=== PATIENT | female | born 1955 | race Caucasian/White ===

== ENCOUNTER → 2018-10-30 | Outpatient (CLI) | payer BC ==
[~2018-10-30] VITALS: Ht 167.6 cm; Wt 85.7 kg
[~2018-10-30] MED LIST: CRESTOR10 MG PO; HYDROCODON-ACE1 EAC5 PO; LASIX 40 MG TAB40 M2 PO; LEXAPRO20 MG PO; NORCO 10-325 T1 EACH PO; NORVASC10 MG PO; SYMBICORT160 MCG/4. INH; ZYRTEC10 M5 PO
--- NOTE | ~2018-10-30 | HPC ---
[facility] [place] [address] PAIN MANAGEMENT CONSULTATION Name: LEONEL THOMSON Room #: REG [facility].#: [id number] Admission: 10/30/18 Attend Phys: Ivan Faria MD Discharge: Date of : 53 Report #: [id number] THIS REPORT FOR: //name// CC: Jesse Faria DATE OF SERVICE: 10/30/2018 Followup visit for chronic intractable low back pain with radiculopathy, left lower extremity. The patient returns to pain clinic today for renewal of pain medication. She has lumbar radiculopathy involving L5-S1 distribution. She walks with a slightly antalgic gait. She has been doing well with her oral medication. She takes Celebrex once daily as needed and has been using hydrocodone under terms of written opioid agreement. She has been on opioid medications since 2011 using effectively to remain active and continue to work. 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 The medication allows her to work. She has no significant side effects and carefully safeguards her medication per terms of our written agreement. This is her first visit at [facility]. We had to renew her opioid agreement with us today for our records. PHYSICAL EXAMINATION: She is pleasant female, alert and oriented. Blood pressure is 137/70, heart rate 65, respirations 16. She is 5 feet 6 inches, 189 pounds with a BMI of 30.5. She independently moves from sitting to standing position and there is a slight antalgic feature to her gait. She has positive straight leg raising discomfort on the left, radiating down the L5-S1 distribution of the left leg as far as the calf. Sensation is intact. No focal weakness is noted. Deep tendon reflexes are hyperreflexic, 3+ at knees and ankles. Sensation intact. It should be noted she does have history of some neck pain, but does not have an MRI. She is not experiencing any neuropathic features from her neck pain, but the hyperreflexia was noted to the patient. IMPRESSION: 1. Chronic low back pain with radiculopathy on the left and L5-S1 distribution. 2. Management of high risk medications under terms of written opioid agreement. 3. Osteoarthritis, status post hip replacement, bilateral. PLAN: I renewed her medications with important information regarding [address] [place] [address] PAIN MANAGEMENT CONSULTATION Name: LEONEL THOMSON Francine Room #: REG MICHAEL Cruz#: [id number] Admission: 10/30/18 Attend Phys: Ivan Faria MD Discharge: Date of : 53 Report #: [id number] safeguarding, repeated once again before discharge and I plan to see her back in the pain clinic at 3 month interval. No changes in medication. She will remain on hydrocodone 10/325 one tablet 4 times daily as directed. By: [id number] Ivan Faria MD /le
[2018-10-30 09:21] VITALS: BP 137/70
--- NOTE | 2018-10-30 09:34 | NUR ---
Pain Clinic Assessment: 1. History of Osteoarthritis: History of Rheumatoid Arthritis: 2. Height: 5 ft. 6 in. 167.6 cm. Weight: 189.0 lb. oz. 85.730 kg. Patient's BMI: 30.5 3. Vital Signs: BP: 137/70 Pulse: 65 Resp: 16 Temp: 02 Sat: 96 ECG Mon: 4. Pain Intensity: 6 5. Fall Risk: Dizziness: N Needs help standing or walking: N Fallen in the last 3 months: N Fall risk comments: 6. Patient on Blood Thinner: None 7. History of Hypertension: Y 8. Opioid Therapy greater than 6 weeks: Y Opiate Contract Signed: 10/30/18 9. Risk Assessment Tool Provided: 10. Functional Assessment Tool: 34 11. Recreational Drug Use: Never Drug Type: Tobacco Use: Never Smoker Tobacco Type: Amount or Packs/day: How Many Years: Alcohol Use: No Frequency: Quant:
== END ==
LOC: PAIN 08:17
DX: M54.16 Radiculopathy, lumbar region (principal); Z96.643 Presence of artificial hip joint, bilateral; Z79.899 Other long term (current) drug therapy; Z79.891 Long term (current) use of opiate analgesic

== ENCOUNTER → 2019-01-29 | Outpatient (CLI) | payer BC ==
[~2019-01-29] VITALS: Ht 167.6 cm; Wt 88.5 kg
[2019-01-29 09:07] VITALS: BP 132/72
--- NOTE | 2019-01-29 09:13 | NUR ---
Pain Clinic Assessment: 1. History of Osteoarthritis: History of Rheumatoid Arthritis: 2. Height: 5 ft. 6 in. 167.6 cm. Weight: 195.2 lb. oz. 88.542 kg. Patient's BMI: 31.5 3. Vital Signs: BP: 132/72 Pulse: 66 Resp: 16 Temp: 02 Sat: 100 ECG Mon: 4. Pain Intensity: 6 5. Fall Risk: Dizziness: N Needs help standing or walking: N Fallen in the last 3 months: N Fall risk comments: 6. Patient on Blood Thinner: None 7. History of Hypertension: Y 8. Opioid Therapy greater than 6 weeks: Y Opiate Contract Signed: 10/30/18 9. Risk Assessment Tool Provided: LOW 10. Functional Assessment Tool: 34 11. Recreational Drug Use: Never Drug Type: Tobacco Use: Never Smoker Tobacco Type: Amount or Packs/day: How Many Years: Alcohol Use: No Frequency: Quant:
--- NOTE | 2019-02-02 07:18 | HPC ---
[facility] [address] [place] [address] PAIN MANAGEMENT CONSULTATION Name: LEONEL THOMSON Room #: REG MICHAEL Cruz#: [id number] Admission: 01/29/19 ������������������ Attend Phys: Betzaida Ibanez Discharge: ������������������ Date of : 53 Report #: [id number] THIS REPORT FOR: //name// CC: Betzaida Ibanez [facility] DATE OF SERVICE: 01/29/2019 CHIEF COMPLAINT: Chronic intractable low back pain with radiculopathy. HISTORY OF PRESENT ILLNESS: This is a very pleasant 63-year-old female who returns to the pain clinic today for refill of her medications for her ongoing chronic low back pain and radiculopathy. She tells me that her hydrocodone is very helpful in controlling her pain. 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 Tax season was hard with lots of sitting since most of her pain is worse when she is sitting and lying down, but it is slowly getting better now that the bulk of her work is over. She tells me that her medications are helpful as well as repositioning. She does not have any problems with daytime sleepiness or constipation. She tells me she has an appointment with Dr. Adan in April to just discuss with him about her back and about spinal cord stimulator, which Dr. Faria had mentioned to her in the past. She tells me she is not looking to have surgery currently, she just would like a consult to see what the surgeon thinks. She would like a refill of her medications today. ALLERGIES: PENICILLIN. CURRENT MEDICATIONS: Hydrocodone 10/325 four times a day, Zyrtec 10 mg daily, Symbicort daily, Crestor 10 mg daily, Lexapro 40 mg daily, Lasix 40 mg daily, amlodipine 10 mg daily. PQRS: 1. She has a history of arthritic changes in her hips and lower back. She denies any rheumatoid arthritis. 2. Height is 5 feet 6 inches, weight is 195, BMI is 35. 3. Vital signs: Blood pressure 132/72, pulse of 66, respirations 16, oxygen sat is 100%. 4. Pain score is 6/10. 5. Fall risk. Denies dizziness. Does not need any help with walking or standing. She has not fallen in the last 3 months. She does not take any blood thinner medications, but does take antihypertensives. 6. Opioid therapy is greater than 6 weeks; therefore, an opioid signed contract is on the chart. Her risk assessment tool is low. Functional assessment is 34/70. 7. Recreational drug use, she denies. She is not a smoker [place] [address] PAIN MANAGEMENT CONSULTATION Name: LEONEL THOMSON Yogi Room #: REG [facility] Anthony#: [id number] Admission: 01/29/19 ������������������ Attend Phys: Betzaida Ibanez Discharge: ������������������ Date of : 53 Report #: [id number] We did check the prescription monitoring system. The patient is filling appropriately for her medications filling in a timely fashion. We do not have a drug screen on this chart, but we will do one randomly in the near future. PHYSICAL EXAMINATION: GENERAL: This is a very pleasant and alert 63-year-old female who appears her stated age, placing her pain score today at 6/10. HEENT: Normocephalic, atraumatic. Extraocular eye muscles are intact. Mucous membranes are moist. MUSCULOSKELETAL: She moves independently from sitting to standing. She has pain that radiates down the L5-S1 distribution on the left leg from her lower back to her knee. She does walk with a slightly antalgic gait. Lower extremity muscle strength is judged to be 5/5 for all major muscle groups. IMPRESSION: 1. Chronic low back pain with radiculopathy on the left in the L5-S1 distribution. 2. Management of high risk medications under terms of written opioid agreement. 3. Osteoarthritis, status post bilateral hip replacement. We reviewed the fact that opiate medications are being used to provide analgesia adequate to support activities of daily living, not attempting to achieve a specific pain score on the 0-10 Visual Analog Scale. The current opiate medications are providing sufficient analgesia to allow the patient to participate in activities of daily living. The patient is not exhibiting any aberrant behavior suggestive of drug diversion. The patient is not having any adverse reactions to medications. The patient is not suffering from daytime somnolence or mental acuity changes. The patient is managing opiate-induced constipation with appropriate iacz-axm-lctdqnh agents and dietary considerations. The patient was counseled on concern for caution with operating a motor vehicle while using opiate medications. A physical exam was performed and the patient's functional status was evaluated. All patients with back pain were advised against the bed rest greater than 4 days and were advised to return to normal activities. Pain score assessment was noted and the treatment plan was reviewed with the patient. All current medications, both prescribed and OTC were reviewed and reconciled on the electronic medical record. Tobacco screening was accomplished and smoking cessation was advised when indicated. BMI was noted and diet/exercise modification was recommended for all patients following outside normal parameters. I reviewed with the patient today their responsibilities to safeguard prescription medications, reviewed their responsibility to utilize medications only as prescribed by the physician. They are to seek and receive pain medications only from 1 physician group ([facility]). They are to use [address] [address] PAIN MANAGEMENT CONSULTATION Name: LEONEL THOMSON Room #: REG [facility]#: [id number] Admission: 01/29/19 ������������������ Attend Phys: Betzaida Ibanez Discharge: ������������������ Date of : 53 Report #: [id number] pharmacy and keep the clinic informed if they change pharmacies. Their responsibilities include making followup visits in a timely fashion and to avoid abrupt discontinuation of medication usage. Their responsibilities further include bringing their medications (bottles from the pharmacy with residual pills) to the visit for possible confirmation of pill counts and the patient understands it is their responsibility to submit to random drug screens to ensure both that the medications prescribed are present, and that no other controlled substances are present. All prescriptions provided today were generated electronically. PLAN: 1. We discussed treatment options with the patient today. The patient is doing quite well on her current medication regimen. According to the CDC guidelines, she falls into [address] below their guidelines; therefore, we will give her 3 months of medication of hydrocodone 10/325, quantity #120 to release today 4-week and 8-week. 2. The patient will see Dr. Felipe Adan, neurosurgeon to have a consultation with him regarding her lower back pain and also discuss spinal cord stimulation. I believe this is good just to see what her options are at this time. 3. Dr. Faria did come and see the patient and collaborated care today. The patient will return in followup in 3 months' time. ��������������������������������������������� <ELECTRONICALLY SIGNED> ���������������������������������������� By: Betzaida Ibanez ��������������������������������������������� 02/02/19 07 0941 1943 Betzaida wagner
== END ==
LOC: PAIN 06:44
DX: M47.27 Other spondylosis with radiculopathy, lumbosacral region (principal); M19.90 Unspecified osteoarthritis, unspecified site; Z88.0 Allergy status to penicillin; Z79.899 Other long term (current) drug therapy; Z96.643 Presence of artificial hip joint, bilateral

== ENCOUNTER → 2019-04-23 | Outpatient (CLI) | payer BC ==
[~2019-04-23] VITALS: Ht 167.6 cm; Wt 88.1 kg
[~2019-04-23] MED LIST changes: +FLEXERIL PO; +LIORESAL 10 MG10 MG PO
[2019-04-23 09:56] VITALS: BP 136/70
--- NOTE | 2019-04-23 10:06 | NUR ---
Pain Clinic Assessment: 1. History of Osteoarthritis: History of Rheumatoid Arthritis: 2. Height: 5 ft. 6 in. 167.6 cm. Weight: 194.2 lb. oz. 88.089 kg. Patient's BMI: 31.4 3. Vital Signs: BP: 136/70 Pulse: 66 Resp: 16 Temp: 02 Sat: 96 ECG Mon: 4. Pain Intensity: 8 5. Fall Risk: Dizziness: N Needs help standing or walking: Y Fallen in the last 3 months: Y Fall risk comments: 6. Patient on Blood Thinner: None 7. History of Hypertension: Y 8. Opioid Therapy greater than 6 weeks: Y Opiate Contract Signed: 10/30/18 9. Risk Assessment Tool Provided: LOW 10. Functional Assessment Tool: 34 11. Recreational Drug Use: Never Drug Type: Tobacco Use: Never Smoker Tobacco Type: Amount or Packs/day: How Many Years: Alcohol Use: No Frequency: Quant:
--- NOTE | 2019-04-27 10:25 | HPC ---
[facility] [place] [place] [address] PAIN MANAGEMENT CONSULTATION Name: LEONEL THOMSON Room #: REG [facility] Cruz#: [id number] Admission: 04/23/19 ������������������ Attend Phys: Betzaida Ibanez Discharge: ������������������ Date of : 53 Report #: [id number] THIS REPORT FOR: //name// CC: Betzaida Ibanez [facility] DATE OF SERVICE: 04/23/2019 CHIEF COMPLAINT: Chronic intractable low back pain with radiculopathy and fractured patella. HISTORY OF PRESENT ILLNESS: This is a very pleasant 63-year-old female who returns to the pain clinic today for refill of her medications. She reports that she fell going up her steps in her home about 2 weeks ago and landed on her right knee and fractured her patella. She has seen an orthopedic doctor, so she is in an immobilizer brace. They are attempting to keep it immobilized for at least 6 weeks to see if it will heal. If this is unsuccessful, then she may possibly need to have surgery. Due to this recent fracture, the patient has been taking 1 extra pain pill of her hydrocodone a day to get through the day when she is working. She tells me that she has also been having some restless leg, feeling legs have been jerky when she is at work as well as at sleep. She reports a pain score of an 8/10 today. This pain is worse when she is sitting, but better when she is repositioned or changes position or uses her medication. She denies any problems with daytime sleepiness or constipation. ALLERGIES: PENICILLIN. CURRENT LIST OF MEDICATIONS: Flexeril 5-10 mg p.r.n., hydrocodone 10/325 up to 4 times a day, Zyrtec, Symbicort, Crestor, Lexapro, Lasix and Norvasc. PQRS: 1. The patient has a history of arthritic changes in her hips and her lumbar spine. She denies any rheumatoid arthritis. 2. Height is 5 feet 6 inches, weight is 194, BMI is 31. 3. VITAL SIGNS: Blood pressure 136/70, pulse is 66, respirations 16, oxygen sat is 96. 4. Pain score is 8/10. 5. Denies dizziness. Does use a cane for walking, has fallen in the last 3 months. 6. The patient is not on any blood thinners, but does take medicine for hypertension. 7. Opioid therapy is greater than 6 weeks; therefore, an opioid signed contract is on the chart. Risk assessment tool is low. Functional assessment is 34/70. 8. Recreational drug use, she denies. She is not a smoker and does not drink alcohol. [address] [address] PAIN MANAGEMENT CONSULTATION Name: BERTOLEONEL Room #: REG MICHAEL Cruz#: [id number] Admission: 04/23/19 ������������������ Attend Phys: Betzaida Ibanez Discharge: ������������������ Date of : 53 Report #: [id number] According to the prescription monitoring system, the patient is due to fill her medications next week. We will check a random drug screen on her in the near future. She tells me she does safeguard her medications. PHYSICAL EXAMINATION: GENERAL: This is a very pleasant, alert and orientated, 63-year-old female who appears her stated age, placing her current pain score today at 8/10. HEENT: Normocephalic, atraumatic. Extraocular eye muscles are intact. Mucous membranes are moist. MUSCULOSKELETAL: She moves from sitting to standing independently. She does have an immobilizer on her right leg. Her right knee is slightly swollen compared to the left. She does walk with an antalgic gait. Complains of pain across the lumbar spine that radiates down the L5-S1 dermatomal distribution. Her lower extremity strength judged to be 5/5 in all major muscle groups. IMPRESSION: 1. Chronic low back pain with radiculopathy following the L5-S1 dermatomal distribution. 2. Management of high risk medications under terms of written opioid agreement. 3. Osteoarthritis, status post bilateral hip replacement. 4. Recent right patella fracture. We reviewed the fact that opiate medications are being used to provide analgesia adequate to support activities of daily living, not attempting to achieve a specific pain score on the 0-10 Visual Analog Scale. The current opiate medications are providing sufficient analgesia to allow the patient to participate in activities of daily living. The patient is not exhibiting any aberrant behavior suggestive of drug diversion. The patient is not having any adverse reactions to medications. The patient is not suffering from daytime somnolence or mental acuity changes. The patient is managing opiate-induced constipation with appropriate phew-gch-tououpv agents and dietary considerations. The patient was counseled on concern for caution with operating a motor vehicle while using opiate medications. A physical exam was performed and the patient's functional status was evaluated. All patients with back pain were advised against the bed rest greater than 4 days and were advised to return to normal activities. Pain score assessment was noted and the treatment plan was reviewed with the patient. All current medications, both prescribed and OTC were reviewed and reconciled on the electronic medical record. Tobacco screening was accomplished and smoking cessation was advised when indicated. BMI was noted and diet/exercise modification was recommended for all patients following outside normal parameters. I reviewed with the patient today their responsibilities to safeguard prescription medications, reviewed their responsibility to utilize medications [address] [place] [address] PAIN MANAGEMENT CONSULTATION Name: LEONEL THOMSON [facility] [id number] Admission: 04/23/19 ������������������ Attend Phys: Betzaida MICHAEL Ibanez Discharge: ������������������ Date of : 53 Report #: [id number] only as prescribed by the physician. They are to seek and receive pain medications only from [facility] physician group ( [facility]). They are to use 1 pharmacy and keep the clinic informed if they change pharmacies. Their responsibilities include making followup visits in a timely fashion and to avoid abrupt discontinuation of medication usage. Their responsibilities further include bringing their medications (bottles from the pharmacy with residual pills) to the visit for possible confirmation of pill counts and the patient understands it is their responsibility to submit to random drug screens to ensure both that the medications prescribed are present, and that no other controlled substances are present. All prescriptions provided today were generated electronically. PLAN: 1. We discussed treatment options with the patient today. The patient is experiencing acute pain on her chronic pain; therefore, requiring a few extra pain pills to get through this fracture. We have allowed the patient to take 1 extra pain pill for the next couple of weeks. Hopefully, by that time, she will have some decrease in pain when the fracture is healing. Scripts given today for hydrocodone 10/325, #135 for the first month, then 120 for 4-week release and 120 for 8-week release. The patient verbalizes understanding that she is to decrease back to her normal medication level by the second month. 2. We did caution the patient about increased constipation issues that she may experience from her increase in Narcotics. 3. The patient did talk about some restless leg issues that she is experiencing since she has had her fracture. She had tried diazepam in the past when she had had her hip replaced, wondering if there is a medication that may be beneficial. After discussion with the patient and Dr. Ivan Faria, it was decided to have a trial of baclofen 10 mg, a half to one tablet 3 times a day, #30 with 1 additional refill was given. The patient is to call the office if this is not helpful, then we could try a trial of tizanidine at 2 mg, though it does have some sedating effect, which is what we are trying to prevent with the use of baclofen. 4. The patient will call us if she does have surgery on her right patella and if she is given any narcotics from the surgeon due to her ongoing contract with us. 5. Dr. Faria did see the patient and collaborated care as well today. ��������������������������������������������� <ELECTRONICALLY SIGNED> ���������������������������������������� By: Betzaida Ibanez ��������������������������������������������� 04/27/19 1025 [id number] Betzaida Ibanez /le
== END ==
LOC: PAIN 06:42
DX: M54.16 Radiculopathy, lumbar region (principal); S82.001D Unspecified fracture of right patella, subsequent encounter for closed fracture with routine healing; M16.0 Bilateral primary osteoarthritis of hip; Z96.643 Presence of artificial hip joint, bilateral; Z79.891 Long term (current) use of opiate analgesic; Z79.899 Other long term (current) drug therapy; Z88.0 Allergy status to penicillin; X58.XXXD Exposure to other specified factors, subsequent encounter

== ENCOUNTER → 2019-05-04 | Outpatient (CLI) | payer BC ==
[~2019-05-04] VITALS: Ht 165.1 cm; Wt 86.6 kg
[~2019-05-04] MED LIST changes: +VENTOLIN HFA 1818 GM INH; +ZANAFLEX4 MG PO
[2019-05-04 08:40] VITALS: BP 147/77
--- NOTE | 2019-05-04 08:42 | NUR ---
Pain Clinic Assessment: 1. History of Osteoarthritis: Not Applicable History of Rheumatoid Arthritis: Not Applicable 2. Height: 5 ft. 5 in. 165.1 cm. Weight: 191.0 lb. oz. 86.637 kg. Patient's BMI: 31.8 3. Vital Signs: BP: 147/77 Pulse: 74 Resp: 16 Temp: 02 Sat: 94 ECG Mon: 4. Pain Intensity: 5-6 5. Fall Risk: Dizziness: N Needs help standing or walking: N Fallen in the last 3 months: Y Fall risk comments: 6. Patient on Blood Thinner: None 7. History of Hypertension: Y 8. Opioid Therapy greater than 6 weeks: Y Opiate Contract Signed: 10/30/18 9. Risk Assessment Tool Provided: LOW 10. Functional Assessment Tool: 11. Recreational Drug Use: Never Drug Type: Tobacco Use: Never Smoker Tobacco Type: Amount or Packs/day: How Many Years: Alcohol Use: No Frequency: Quant:
--- NOTE | 2019-05-05 10:10 | HPC ---
[facility] [place] [address] PAIN MANAGEMENT CONSULTATION Name: LEONEL THOMSON Room #: REG MICHAEL Cruz#: [id number] Admission: 05/04/19 Attend Phys: Betzaida Ibanez Discharge: Date of : 53 Report #: [id number] THIS REPORT FOR: //name// CC: Betzaida Ibanez Jesse Joaquin DATE OF SERVICE: 05/04/2019 CHIEF COMPLAINT: Chronic intractable low back pain with radiculopathy, fracture patella. HISTORY OF PRESENT ILLNESS: This is a very pleasant 63-year-old female who returns to the pain clinic today for her low back pain and lumbar radiculopathy. She was here approximately 2 weeks ago and had fractured her patella on her right knee and been having increasing spasms and restless leg feeling since this has occurred. We had given her baclofen at that time. She is finding that that is not as helpful as would like. She did have Flexeril that she had taken in the past, but it made her too hungover and sleepy feeling in the morning when she was needing to go to work. She is here today to discuss different options. The patient does tell me that the pain medicine that we gave her the hydrocodone 10/325 additional pills is very helpful in controlling her pain. She does rate her pain score is a 5-6 today, again mostly in the low back and bilateral legs and right knee. The patient tells me she did see the neurosurgeon Dr. Adan last week. He gave her several options. One was surgery. Another was a spinal cord stimulator or possibly having Dr. Ivan Faria do a facet injection. He recommended that she wait for all of these until her back is not so flared up due to her gait being altered with her knee brace on and using a cane. She does have literature about a spinal cord stimulator that she is reviewing. ALLERGIES: PENICILLIN. CURRENT LIST OF MEDICATIONS: Hydrocodone 10/325, Flexeril 10 mg p.r.n., Zyrtec, Symbicort, Crestor, Lexapro, Lasix and Norvasc. PQRS: 1. She has a history of arthritic changes in her hips and lumbar spine. She denies any rheumatoid arthritis. 2. Height is 5 feet 5 inches, weight is 191, BMI is 31. 3. VITAL SIGNS: Blood pressure 147/77, pulse is 74, respirations 16, oxygen sat is 94. 4. Pain score is 5-6. 5. Denies dizziness, does not need help walking or standing, has fallen in the last 3 months. 6. The patient is on no blood thinners, does [place] [address] PAIN MANAGEMENT CONSULTATION Name: LEONEL THOMSON Room #: REG MICHAEL Cruz#: [id number] Admission: 05/04/19 Attend Phys: Betzaida Ibanez Discharge: Date of : 53 Report #: [id number] 7. Opioid therapy is greater than 6 weeks; therefore, an opioid signed contract is on the chart. Her risk assessment tool is low. Functional assessment is 34/70. 8. Recreational drug use, she denies. She is not a smoker and does not drink alcohol. According to the prescription monitoring system, the patient is filling appropriately for her medications and is not due for those today. PHYSICAL EXAMINATION: GENERAL: Very pleasant, alert and orientated 63-year-old female who appears her stated age, placing her current pain score today at 5-6. HEENT: Normocephalic, atraumatic. Extraocular eye muscles are intact. Mucous membranes are moist. MUSCULOSKELETAL: She has immobilizer on her right leg. She does walk with an antalgic gait. Complains of pain in her lumbar spine that radiates down her L5-S1 dermatomal distribution greater on the left than the right. Lower extremity strength judged to be 5/5 with all major muscle groups. She does move from sitting to standing independently. She is using the cane today. IMPRESSION: 1. Chronic low back pain with radiculopathy following the L5-S1 dermatomal distribution. 2. Management of high risk medications under terms of written opioid agreement. 3. Osteoarthritis, status post bilateral hip replacement. 4. Right patellar fracture. 5. Scoliosis. We reviewed the fact that opiate medications are being used to provide analgesia adequate to support activities of daily living, not attempting to achieve a specific pain score on the 0-10 Visual Analog Scale. The current opiate medications are providing sufficient analgesia to allow the patient to participate in activities of daily living. The patient is not exhibiting any aberrant behavior suggestive of drug diversion. The patient is not having any adverse reactions to medications. The patient is not suffering from daytime somnolence or mental acuity changes. The patient is managing opiate-induced constipation with appropriate fdkd-olu-abxwpev agents and dietary considerations. The patient was counseled on concern for caution with operating a motor vehicle while using opiate medications. A physical exam was performed and the patient's functional status was evaluated. All patients with back pain were advised against the bed rest greater than 4 days and were advised to return to normal activities. Pain score assessment was noted and the treatment plan was reviewed with the patient. All current medications, both prescribed and OTC were reviewed and reconciled on the electronic medical record. Tobacco screening was accomplished and smoking [address] [address] PAIN MANAGEMENT CONSULTATION Name: LEONEL THOMSON Room #: REG [facility]#: [id number] Admission: 05/04/19 Attend Phys: Betzaida Ibanez Discharge: Date of : 53 Report #: [id number] cessation was advised when indicated. BMI was noted and diet/exercise modification was recommended for all patients following outside normal parameters. I reviewed with the patient today their responsibilities to safeguard prescription medications, reviewed their responsibility to utilize medications only as prescribed by the physician. They are to seek and receive pain medications only from 1 physician group ( [facility]). They are to use 1 pharmacy and keep the clinic informed if they change pharmacies. Their responsibilities include making followup visits in a timely fashion and to avoid abrupt discontinuation of medication usage. Their responsibilities further include bringing their medications (bottles from the pharmacy with residual pills) to the visit for possible confirmation of pill counts and the patient understands it is their responsibility to submit to random drug screens to ensure both that the medications prescribed are present, and that no other controlled substances are present. All prescriptions provided today were generated electronically. PLAN: 1. We discussed treatment options with the patient today the increase in her pain medications from 120 to 135 has been very beneficial helping her deal with the increased pain from her fractured patella. The patient will see the orthopedic doctor Saturday to determine if she does need surgery or if she will continue to heal wearing only her brace. 2. We had done a trial of baclofen that was not beneficial with helping her muscle spasms and restless leg. We will try tizanidine 4 mg. The patient to try 1/2 tablet at daytime and 1 full tablet at bedtime, quantity 60 given with 1 additional refill. 3. No scripts for narcotics were given today. 4. We did talk about spinal cord stimulators and possible facet injection. The patient will call in the future if these need to be scheduled. Patient seen in collaboration today with Dr. Ivan Faria. <ELECTRONICALLY SIGNED> By: Betzaida Ibanez 05/05/19 1010 [id number] [id number] Betzaida Ibanez /le
== END ==
LOC: PAIN 06:42
DX: M54.16 Radiculopathy, lumbar region (principal); S82.001A Unspecified fracture of right patella, initial encounter for closed fracture; M16.0 Bilateral primary osteoarthritis of hip; M41.86 Other forms of scoliosis, lumbar region; Z88.0 Allergy status to penicillin; Z79.899 Other long term (current) drug therapy; Z79.891 Long term (current) use of opiate analgesic; Z96.643 Presence of artificial hip joint, bilateral; X58.XXXA Exposure to other specified factors, initial encounter; Y93.89 Activity, other specified; Y92.89 Other specified places as the place of occurrence of the external cause; Y99.8 Other external cause status

== ENCOUNTER → 2019-07-09 | Outpatient (CLI) | payer BC ==
[~2019-07-09] VITALS: Ht 165.1 cm; Wt 87.1 kg
[2019-07-09 09:26] VITALS: BP 161/82
--- NOTE | 2019-07-09 09:32 | NUR ---
Pain Clinic Assessment: 1. History of Osteoarthritis: Not Applicable History of Rheumatoid Arthritis: Not Applicable 2. Height: 5 ft. 5 in. 165.1 cm. Weight: 192.0 lb. oz. 87.091 kg. Patient's BMI: 32.0 3. Vital Signs: BP: 161/82 Pulse: 68 Resp: 18 Temp: 02 Sat: 97 ECG Mon: 4. Pain Intensity: 7 5. Fall Risk: Dizziness: N Needs help standing or walking: N Fallen in the last 3 months: N Fall risk comments: 6. Patient on Blood Thinner: None 7. History of Hypertension: Y 8. Opioid Therapy greater than 6 weeks: Y Opiate Contract Signed: 10/30/18 9. Risk Assessment Tool Provided: LOW 10. Functional Assessment Tool: 11. Recreational Drug Use: Never Drug Type: Tobacco Use: Never Smoker Tobacco Type: Amount or Packs/day: How Many Years: Alcohol Use: No Frequency: Quant:
--- NOTE | 2019-07-10 11:30 | HPC ---
[facility] [address] [place] [address] PAIN MANAGEMENT CONSULTATION Name: BERTOLEONEL A Room #: REG [facility] [employer]#: [id number] Admission: 07/09/19 Attend Phys: Betzaida Ibanez Discharge: Date of : 53 Report #: [id number] THIS REPORT FOR: //name// CC: Betzaida Ibanez [facility] DATE OF SERVICE: 07/09/2019 CHIEF COMPLAINT: Chronic intractable low back pain with radiculopathy. HISTORY OF PRESENT ILLNESS: This is a very pleasant 63-year-old female who returns to the pain clinic today for refill of her medications that she uses to help treat her ongoing low back pain and right lower extremity pain. She reports a pain score of 7/10 today that is worse with sitting and lying down. She feels that the medication as well as activity and repositioning herself are very beneficial in controlling her pain. The patient is here present today with no cane. She reports that she did not need any surgery for her patella fracture that she experienced earlier this year and feels that she has recovered quite nicely from that fracture. ALLERGIES: PENICILLIN. CURRENT LIST OF MEDICATIONS: Hydrocodone 10/325 p.r.n., Flexeril 5-10 mg at bedtime, Zyrtec daily, Symbicort daily, Crestor 10 mg daily, Lexapro 40 mg daily, Lasix 40 mg daily, amlodipine 10 mg daily. PQRS: 1. She has arthritic changes in her hips and lumbar spine. She denies any rheumatoid arthritis. 2. Height is 5 feet 5 inches, weight is 192, BMI is 32. 3. Vital signs 161/82, pulse is 68, respirations 18, oxygen sat is 97. 4. Pain score is 7/10. 5. Denies dizziness, does not need help walking or standing, has not fallen in the last 3 months. 6. The patient is not on any blood thinners, but does take medicine for hypertension. 7. Opioid therapy is greater than 6 weeks; therefore, an opioid signed contract is on the chart. Risk assessment tool is low. Functional assessment is 34/70. 8. Recreational drug use, she denies. She is not a smoker and does not drink alcohol. According to the prescription monitoring system, the patient is filling appropriately for her medications. We will check a random drug screen on this patient in the next visit. [address] [address] PAIN MANAGEMENT CONSULTATION Name: LEONEL THOMSON Yogi Room #: REG MICHAEL Cruz#: [id number] Admission: 07/09/19 Attend Phys: Betzaida Ibanez Discharge: Date of : 53 Report #: [id number] PHYSICAL EXAMINATION: GENERAL: This is a pleasant and alert 63-year-old female who appears her stated age, placing her current pain score today at 7/10. HEENT: Normocephalic, atraumatic. Extraocular muscles are intact. Mucous membranes are moist. MUSCULOSKELETAL: She walks with a slightly antalgic gait. She has pain across her lumbar spine that radiates following the L5-S1 dermatomal distribution, greater on the left than the right. She moves from sitting to standing without any difficulty. Her lower extremity strength judged to be 5/5 with all major muscle groups. IMPRESSION: 1. Chronic low back pain with radiculopathy following the L5-S1 dermatomal distribution. 2. Osteoarthritis, status post bilateral hip replacement. 3. Scoliosis. 4. Management of high risk medications under terms of written opioid agreement. We reviewed the fact that opiate medications are being used to provide analgesia adequate to support activities of daily living, not attempting to achieve a specific pain score on the 0-10 Visual Analog Scale. The current opiate medications are providing sufficient analgesia to allow the patient to participate in activities of daily living. The patient is not exhibiting any aberrant behavior suggestive of drug diversion. The patient is not having any adverse reactions to medications. The patient is not suffering from daytime somnolence or mental acuity changes. The patient is managing opiate-induced constipation with appropriate aelk-zzy-rcyjhjm agents and dietary considerations. The patient was counseled on concern for caution with operating a motor vehicle while using opiate medications. A physical exam was performed and the patient's functional status was evaluated. All patients with back pain were advised against the bed rest greater than 4 days and were advised to return to normal activities. Pain score assessment was noted and the treatment plan was reviewed with the patient. All current medications, both prescribed and OTC were reviewed and reconciled on the electronic medical record. Tobacco screening was accomplished and smoking cessation was advised when indicated. BMI was noted and diet/exercise modification was recommended for all patients following outside normal parameters. I reviewed with the patient today their responsibilities to safeguard prescription medications, reviewed their responsibility to utilize medications only as prescribed by the physician. They are to seek and receive pain medications only from 1 physician group ([facility]). They are to use 1 pharmacy and keep the clinic informed if they change pharmacies. Their responsibilities include making followup visits in a timely fashion and to avoid [address] [address] PAIN MANAGEMENT CONSULTATION Name: LEONEL THOMSON Room #: REG MICHAEL Cruz#: [id number] Admission: 07/09/19 Attend Phys: Betzaida Ibanez Discharge: Date of : 53 Report #: [id number] abrupt discontinuation of medication usage. Their responsibilities further include bringing their medications (bottles from the pharmacy with residual pills) to the visit for possible confirmation of pill counts and the patient understands it is their responsibility to submit to random drug screens to ensure both that the medications prescribed are present, and that no other controlled substances are present. All prescriptions provided today were generated electronically. PLAN: 1. We discussed treatment options with the patient today. The patient finds the hydrocodone very beneficial in controlling her pain. She was happy that she did not need surgery for her fractures patella, but did use the extra pain medicine that we had given her, but now feels that she is able to reduce back to 120 of pain pills for the month. Scripts given today for hydrocodone 10/325, #120 for today, 4-week and 8-week release. 2. The patient felt that the trial that we gave her of baclofen and tizanidine was not beneficial, so therefore she did restart her Flexeril 5-10 mg at bedtime for occasional muscle spasms and felt that that is working efficiently. 3. The patient denies any problems with constipation or daytime sleepiness. 4. The patient is seen in collaboration with Dr. Ivan Faria today who did see the patient as well. <ELECTRONICALLY SIGNED> By: Betzaida Ibanez 07/10/19 1130 1112 [id number] Betzaida Ibanez /le
== END ==
LOC: PAIN 06:54
DX: M54.16 Radiculopathy, lumbar region (principal); M16.0 Bilateral primary osteoarthritis of hip; M41.80 Other forms of scoliosis, site unspecified; Z96.643 Presence of artificial hip joint, bilateral; Z88.8 Allergy status to other drugs, medicaments and biological substances; Z88.0 Allergy status to penicillin; Z79.899 Other long term (current) drug therapy

== ENCOUNTER → 2019-10-01 | Outpatient (CLI) | payer BC ==
[~2019-10-01] VITALS: Ht 165.1 cm; Wt 88.1 kg
[2019-10-01 09:50] VITALS: BP 150/68
--- NOTE | 2019-10-01 10:03 | NUR ---
Pain Clinic Assessment: 1. History of Osteoarthritis: HIPS History of Rheumatoid Arthritis: DENIES 2. Height: 5 ft. 5 in. 165.1 cm. Weight: 194.2 lb. oz. 88.089 kg. Patient's BMI: 32.3 3. Vital Signs: BP: 150/68 Pulse: 56 Resp: 16 Temp: 02 Sat: 98 ECG Mon: 4. Pain Intensity: 6-7 5. Fall Risk: Dizziness: N Needs help standing or walking: N Fallen in the last 3 months: N Fall risk comments: 6. Patient on Blood Thinner: None 7. History of Hypertension: Y 8. Opioid Therapy greater than 6 weeks: Y Opiate Contract Signed: 10/30/18 9. Risk Assessment Tool Provided: 0-low 10. Functional Assessment Tool: 31 11. Recreational Drug Use: Never Drug Type: Tobacco Use: Never Smoker Tobacco Type: Amount or Packs/day: How Many Years: Alcohol Use: No Frequency: Quant:
--- NOTE | 2019-10-05 08:09 | HPC ---
[facility] [place] [address] PAIN MANAGEMENT CONSULTATION Name: BERTOLEONEL A Room #: REG MICHAEL Cruz#: [id number] Admission: 10/01/19 Attend Phys: Betzaida Ibanez Discharge: Date of : 53 Report #: [id number] THIS REPORT FOR: //name// CC: Betzaida Faria MD DATE OF SERVICE: 10/01/2019 CHIEF COMPLAINT: Chronic intractable low back pain. HISTORY OF PRESENT ILLNESS: This is a very pleasant 63-year-old female, who returns to the pain clinic today for a refill of her medications. She does report a pain score of 6/10. She feels that her lower back pain has been increasing and has been affecting her left leg. At times, she feels slightly unsteady, though she has not fallen. She knows she needs to decide if she is going to have some back surgery by Dr. Adan or continue dealing with her pain as she has been doing. 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 She has started working out at the gym again and it is hopeful that losing some weight may also help reduce some of her back pain. She reports her pain is worse when she is sitting for long periods of time, which she does at work, but if she repositions herself and takes her medications, she feels that her pain is decreased. ALLERGIES: PENICILLIN. CURRENT LIST OF MEDICATIONS: Hydrocodone 10/325 up to 4 times a day, albuterol, Flexeril p.r.n., Zyrtec, Symbicort, Crestor, Lexapro, Lasix, and amlodipine. PQRS: 1. She has a history of osteoarthritis in her lumbar spine as well as her hips. Denies any rheumatoid arthritis. 2. Height is 5 feet and 5 inches, weight is 194, and BMI is 32. 3. Vital signs 150/68, pulse is 56, respirations 16, and oxygen sat is 98. 4. Pain score to 6-7. 5. Denies dizziness, does not need help walking or standing, has not fallen in the last 3 months. The patient has a history of hypertension, but is not on any blood thinners. Her opioid therapy is greater than 6 weeks; therefore, an opioid signed contract is on the chart. Risk assessment tool is low. Functional assessment is 31. 6. Recreational drug use, she denies. She is not a smoker and does not drink alcohol. According to the prescription monitoring system, the patient is filling appropriately for her medications. We will do a random drug screen on her today since it has been greater than a year. [address] [address] PAIN MANAGEMENT CONSULTATION Name: LEONEL THOMSON Room #: REG C[facility]is Cruz#: [id number] Admission: 10/01/19 Attend Phys: Betzaida Ibanez Discharge: Date of : 53 Report #: [id number] PHYSICAL EXAMINATION: GENERAL: This is alert and orientated 63-year-old female, who appears her stated age, placing her current pain score at 6-7. HEENT: Normocephalic and atraumatic. Extraocular eye muscles are intact. Mucous membranes are moist. MUSCULOSKELETAL: She has pain across her lumbar spine that radiates into her left leg following the L5-S1 dermatomal distribution. Her lower extremity strength is judged to be 5/5 in all major muscle groups, though the patient perceives slight weakness in her left leg. She moves from sitting to standing without difficulty. She does walk with an antalgic gait. IMPRESSION: 1. Chronic lumbar radiculopathy following the L5-S1 dermatomal distribution. 2. Osteoarthritis. 3. Scoliosis. 4. Management of high risk medications under terms of written opioid agreement. We reviewed the fact that opiate medications are being used to provide analgesia adequate to support activities of daily living, not attempting to achieve a specific pain score on the 0-10 Visual Analog Scale. The current opiate medications are providing sufficient analgesia to allow the patient to participate in activities of daily living. The patient is not exhibiting any aberrant behavior suggestive of drug diversion. The patient is not having any adverse reactions to medications. The patient is not suffering from daytime somnolence or mental acuity changes. The patient is managing opiate-induced constipation with appropriate hfpd-slz-qnifltu agents and dietary considerations. The patient was counseled on concern for caution with operating a motor vehicle while using opiate medications. PLAN: 1. We discussed treatment options with the patient today. We encouraged the patient to make an appointment with Dr. Felipe Adan to discuss surgical options. We have also briefly discussed spinal cord stimulator. Again, the patient is hopeful to hold off on that device to see if possible surgery will help decrease some of her back pain, that she is also starting to work out in the gym. She is hopeful that weight loss will help decrease some of her pain. 2. We discussed the times of days she does take her medications since she is having difficulty sleeping. The patient will adjust her medication regime to see if this is beneficial, taking maybe half a pill while she was at work allowing her to have half a pill before bed. 3. We will collect a random drug screen on this patient today since it has been greater than one year. 4. We will send her hydrocodone 10/325, #120, for today, 4 and 8-week fills to [facility] [address] [place] [address] PAIN MANAGEMENT CONSULTATION Name: LEONEL THOMSON Room #: REG CL Anthony#: [id number] Admission: 10/01/19 Attend Phys: Betzaida Ibanez Discharge: Date of : 53 Report #: [id number] [facility] electronically by Dr. Ivan Faria, who collaborated care today. The patient will return in 3 months. <ELECTRONICALLY SIGNED> By: Betzaida Ibanez 10/05/19 0809 [id number] [id number] Betzaida Ibanez /nt
== END ==
LOC: PAIN 09:35
DX: M54.16 Radiculopathy, lumbar region (principal); M19.90 Unspecified osteoarthritis, unspecified site; M41.80 Other forms of scoliosis, site unspecified; Z88.0 Allergy status to penicillin; Z79.899 Other long term (current) drug therapy

== ENCOUNTER → 2020-03-17 | Outpatient (CLI) | payer BC ==
[~2020-03-17] VITALS: Ht 165.1 cm; Wt 88.7 kg
[2020-03-17 08:41] VITALS: BP 135/91
--- NOTE | 2020-03-17 08:47 | NUR ---
Pain Clinic Assessment: 1. History of Osteoarthritis: HIPS History of Rheumatoid Arthritis: DENIES 2. Height: 5 ft. 5 in. 165.1 cm. Weight: 195.6 lb. oz. 88.724 kg. Patient's BMI: 32.5 3. Vital Signs: BP: 135/91 Pulse: 65 Resp: 20 Temp: 02 Sat: 98 ECG Mon: 4. Pain Intensity: 6 5. Fall Risk: Dizziness: N Needs help standing or walking: N Fallen in the last 3 months: N Fall risk comments: 6. Patient on Blood Thinner: None 7. History of Hypertension: Y 8. Opioid Therapy greater than 6 weeks: Y Opiate Contract Signed: 10/30/18 9. Risk Assessment Tool Provided: 0-low 10. Functional Assessment Tool: 11. Recreational Drug Use: Never Drug Type: Tobacco Use: Never Smoker Tobacco Type: Amount or Packs/day: How Many Years: Alcohol Use: No Frequency: Quant:
--- NOTE | 2020-03-17 15:48 | HPC ---
[facility] [place] [address] PAIN MANAGEMENT CONSULTATION Name: LEONEL THOMSON Room #: REG JAMALCurtis Cruz#: [id number] Admission: 03/17/20 Attend Phys: Betzaida Ibanez Discharge: Date of : 53 Report #: [id number] THIS REPORT FOR: cc: Jesse Joaquin MD, Anil V. MD Hocker, Amanda CNS ~ CC: Ivan Faria MD DATE OF SERVICE: 03/17/2020 CHIEF COMPLAINT: Chronic low back pain. HISTORY OF PRESENT ILLNESS: This is a very pleasant 64-year-old female who is well known to the pain clinic who returns today for medication management that she uses to help treat her ongoing low back pain. Today, she is reporting a pain score of 6/10. It is in the thoracic and lumbar area of her back. She does not report any leg pain today. She feels that her pain is a constant, aching pain, worse with sitting and lying down. She feels like being active and her medications are beneficial for her. 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 She had been working at home. She feels that this has been helpful to get back in routine, but she has been unable to exercise at her gym because now that she is busy at work with tax season being delayed she feels the best when she is working out and is hopeful she will resume that soon. Today, she would like refills of her medicines, but she does not have any daytime somnolence or constipation as a result of it. ALLERGIES: PENICILLIN. CURRENT LIST OF MEDICATIONS: Hydrocodone 10/325 p.r.n., albuterol, Flexeril, Zyrtec, Symbicort, Crestor, Lexapro, Lasix and amlodipine. PQRS: 1. The patient has osteoarthritis in her hips bilaterally and denies any rheumatoid arthritis. 2. Height is 5 feet 5 inches, weight is 195, BMI is 32. 3. Vital signs 135/91, pulse is 65, respirations 20, oxygen sat is 98. 4. Pain score is 6/10. 5. Denies dizziness, does not need help walking or standing, has not fallen in the last 3 months. 6. The patient is not on any blood thinners, but does take medicine for hypertension. Opioid therapy is greater than 6 weeks; therefore, an opioid signed contract is on the chart. Risk assessment tool is low. Functional assessment is 70. 7. Recreational drug use, she denies, is not a smoker and does not drink alcohol. [address] [address] PAIN MANAGEMENT CONSULTATION Name: LEONEL THOMSON Francine Room #: REG [facility] Anthony#: [id number] Admission: 03/17/20 Attend Phys: Betzaida Ibanez Discharge: Date of : 53 Report #: [id number] According to the prescription monitoring system, the patient is filling appropriately for her medications in a timely fashion. She is due to fill her medicines next week. Her morphine mEq is 40 MMEs per day. There is a recent drug screen on the chart that is appropriate as well for her medications. PHYSICAL EXAMINATION: GENERAL: This is a well-developed, well-nourished, alert and orientated 64-year-old female who appears her stated age, placing her current pain score at 6/10. HEENT: Normocephalic, atraumatic. Extraocular eye muscles are intact. Mucous membranes are moist. She is wearing a mask and glasses today. MUSCULOSKELETAL: Pain is in her thoracic area at her bra line as well as in her lumbosacral region. No radicular symptoms present today. At times, her pain does follow the L5-S1 dermatomal distribution. Lower strength is symmetrical in all major muscle groups in upper and lower extremities at 5/5. She has a slightly antalgic gait. IMPRESSION: 1. Chronic lumbar radiculopathy with no symptoms in the legs presently. 2. Osteoarthritis. 3. Scoliosis. 4. Thoracic myofascial pain. 5. Management of high risk medications under terms of written opioid agreement. We reviewed the fact that opiate medications are being used to provide analgesia adequate to support activities of daily living, not attempting to achieve a specific pain score on the 0-10 Visual Analog Scale. The current opiate medications are providing sufficient analgesia to allow the patient to participate in activities of daily living. The patient is not exhibiting any aberrant behavior suggestive of drug diversion. The patient is not having any adverse reactions to medications. The patient is not suffering from daytime somnolence or mental acuity changes. The patient is managing opiate-induced constipation with appropriate cmvb-xti-bvoswtg agents and dietary considerations. The patient was counseled on concern for caution with operating a motor vehicle while using opiate medications. PLAN: 1. We discussed treatment options with the patient today. The patient feels her medications are beneficial. She has adjusted the times that she does take her medicine feeling that she requires 1 at bedtime. She attributes this need for 1 at bedtime due to lack of exercise. She has not been able to go back to the gym since the COVID virus. This brought us to a discussion on her weight. She feels like she had gained 10 pounds since she has stopped exercising. In reality perusal of the chart, her weight has changed by 1 pound that we did discuss the benefits of exercise and sleep. The patient has been busy at work, but will try to start exercising since the gyms have reopened. [facility] [address] [place] [address] PAIN MANAGEMENT CONSULTATION Name: LEONEL THOMSON Room #: REG [facility] [employer].#: [id number] Admission: 03/17/20 Attend Phys: Betzaida Ibanez Discharge: Date of : 53 Report #: [id number] 2. We will have Dr. Ivan Faria write prescriptions for her hydrocodone , #120 for today, 4-week and 8-week supply. 3. The patient will return in 3 months or as needed earlier. <ELECTRONICALLY SIGNED> By: Betzaida Ibanez 03/17/20 1548 [id number] [id number] Betzaida Ibanez /le
== END ==
LOC: PAIN 08:29
PROVIDERS: ATTEND Clinical Nurse Specialist Adult Health
DX: M16.0 Bilateral primary osteoarthritis of hip (principal); Z88.0 Allergy status to penicillin; R51 Headache; Z79.891 Long term (current) use of opiate analgesic; Z79.899 Other long term (current) drug therapy

== ENCOUNTER → 2020-06-06 | Outpatient (CLI) | payer BC ==
[~2020-06-06] VITALS: Ht 165.1 cm; Wt 90.4 kg
[2020-06-06 13:36] VITALS: BP 144/82
--- NOTE | 2020-06-06 13:42 | NUR ---
Pain Clinic Assessment: 1. History of Osteoarthritis: HIPS History of Rheumatoid Arthritis: DENIES 2. Height: 5 ft. 5 in. 165.1 cm. Weight: 199.2 lb. oz. 90.357 kg. Patient's BMI: 33.1 3. Vital Signs: BP: 144/82 Pulse: 71 Resp: 16 Temp: 02 Sat: 97 ECG Mon: 4. Pain Intensity: 6 5. Fall Risk: Dizziness: N Needs help standing or walking: N Fallen in the last 3 months: N Fall risk comments: 6. Patient on Blood Thinner: None 7. History of Hypertension: Y 8. Opioid Therapy greater than 6 weeks: Y Opiate Contract Signed: 10/30/18 9. Risk Assessment Tool Provided: 0-low 10. Functional Assessment Tool: 11. Recreational Drug Use: Never Drug Type: Tobacco Use: Never Smoker Tobacco Type: Amount or Packs/day: How Many Years: Alcohol Use: No Frequency: Quant:
--- NOTE | 2020-06-07 13:18 | HPC ---
[facility] [address] [place] [address] PAIN MANAGEMENT CONSULTATION Name: LEONEL THOMSON Room #: REG [facility].#: [id number] Admission: 06/06/20 Attend Phys: Betzaida Ibanez Discharge: Date of : 53 Report #: [id number] THIS REPORT FOR: cc: Jesse Joaquin MD, Anil V. MD Hocker,Betzaida RODRIGUEZ ~ CC: Ivan Faria MD DATE OF SERVICE: 06/06/2020 CHIEF COMPLAINT: Chronic low back pain. HISTORY OF PRESENT ILLNESS: This is a very pleasant 64-year-old female who returns to the pain clinic today for refill of her medications that she uses to take for her ongoing low back pain, at times it does radiate into her legs and upwards towards her mid thoracic region. Today, she is complaining of an aching, sharp pain that is worse when she is sitting down at work, bending over. She feels weather changes do increase her pain as well, today it is a 6/10. She feels that her medication as well as being active and repositioning herself are very beneficial. She is able to carry out her activities of daily living without having any side effects as a result of her opioid medications. The patient does report that she is going to have a rotator cuff surgery, hopefully 07/15/[address] Hathaway at [facility]. She reports it will be arthroscopic and it will be an outpatient procedure. She will not be able to use her right arm fully during the healing process. She said this surgery may be delayed if her daughter's gastric sleeve surgery is scheduled at the same time as she will need to be helping her. ALLERGIES: PENICILLIN. CURRENT LIST OF MEDICATIONS: Hydrocodone 10/325 four times a day, albuterol inhaler, cyclobenzaprine p.r.n., Zyrtec, Symbicort, Crestor, Lexapro, Lasix and Norvasc. PQRS: 1. She has a history of osteoarthritis in her hips bilaterally. Denies any rheumatoid arthritis. 2. Height is 5 feet 5 inches, weight is 199, BMI is 33. 3. Vital signs 144/82, pulse is 71, respirations 16, oxygen sat is 97%. Pain score is 6/10. 4. Fall risk. Denies dizziness, does not need help walking or standing, has not fallen in the last 3 months. The patient is not on any blood thinners, but does take medicine for hypertension. Her opioid therapy is greater than 6 weeks; therefore, an opioid signed contract is on the chart. Risk assessment is low. Functional assessment is 31/70. 5. Recreational drug use, she denies. She is not a smoker and does not drink [address] [address] PAIN MANAGEMENT CONSULTATION Name: LEONEL THOMSON Room #: REG CL Anthony#: [id number] Admission: 06/06/20 Attend Phys: Betzaida Ibanez Discharge: Date of : 53 Report #: [id number] alcohol. According to the prescription monitoring system, she is filling appropriately. Her morphine milliequivalent according to the CDC guidelines is 40. There is an opioid drug screen on the chart that is appropriate for her medications that she is prescribed. PHYSICAL EXAMINATION: GENERAL: This is alert and orientated 64-year-old female who appears her stated age, placing her current pain score at 6/10. HEENT: Normocephalic, atraumatic. Extraocular eye muscles are intact. She is wearing a mask. MUSCULOSKELETAL: Pain is in her thoracic region at her bra line that does radiate into her lumbosacral region into her legs following the L5-S1 dermatomal distribution. Her strength in her lower extremities is symmetrical in all major muscle groups of 5/5. She does have tenderness in her right shoulder, worse with abduction. IMPRESSION: 1. Chronic lumbar radiculopathy. 2. Osteoarthritis. 3. Scoliosis. 4. Thoracic myofascial pain. 5. Right shoulder pain. 6. Management of high risk medications under terms of written opioid agreement. We reviewed the fact that opiate medications are being used to provide analgesia adequate to support activities of daily living, not attempting to achieve a specific pain score on the 0-10 Visual Analog Scale. The current opiate medications are providing sufficient analgesia to allow the patient to participate in activities of daily living. The patient is not exhibiting any aberrant behavior suggestive of drug diversion. The patient is not having any adverse reactions to medications. The patient is not suffering from daytime somnolence or mental acuity changes. The patient is managing opiate-induced constipation with appropriate vblq-acz-flkyoxy agents and dietary considerations. The patient was counseled on concern for caution with operating a motor vehicle while using opiate medications. A physical exam was performed and the patient's functional status was evaluated. All patients with back pain were advised against the bed rest greater than 4 days and were advised to return to normal activities. Pain score assessment was noted and the treatment plan was reviewed with the patient. All current medications, both prescribed and OTC were reviewed and reconciled on the electronic medical record. Tobacco screening was accomplished and smoking cessation was advised when indicated. BMI was noted and diet/exercise modification was recommended for all patients following outside normal [facility] [address] [place] [address] PAIN MANAGEMENT CONSULTATION Name: LEONEL THOMSON Room #: REG [facility]#: [id number] Admission: 06/06/20 Attend Phys: Betzaida Ibanez Discharge: Date of : 53 Report #: [id number] parameters. I reviewed with the patient today their responsibilities to safeguard prescription medications, reviewed their responsibility to utilize medications only as prescribed by the physician. They are to seek and receive pain medications only from 1 physician group ( [facility]). They are to use 1 pharmacy and keep the clinic informed if they change pharmacies. Their responsibilities include making followup visits in a timely fashion and to avoid abrupt discontinuation of medication usage. Their responsibilities further include bringing their medications (bottles from the pharmacy with residual pills) to the visit for possible confirmation of pill counts and the patient understands it is their responsibility to submit to random drug screens to ensure both that the medications prescribed are present, and that no other controlled substances are present. All prescriptions provided today were generated electronically. PLAN: 1. We discussed treatment options with the patient today. The patient is going to have a rotator cuff surgery as well as bone spurs removed in her right shoulder in June. I encouraged the patient to try to decrease her hydrocodone use several days prior to her surgery hopefully decreasing down to 2 tablets a day prior to her surgery to make her anesthesia and postoperative pain more easy to manage. The patient is worried she will not be able to do that. I also explained to her that if she is provided a script from her surgeon, she is to call our office and notify us what the medication is. The patient verbalizes understanding. 2. The patient finds her hydrocodone beneficial allowing her to work. She is still busy with the extended tax season and has planned her surgery post-tax season. Scripts will be sent electronically today for her medications of hydrocodone 10/325 four times a day to her pharmacy by Dr. Ivan Faria for today, 4-week and 8-week release. 3. The patient is seen today in collaboration with Dr. Ivan Faria. <ELECTRONICALLY SIGNED> By: Betzaida Ibanez 06/07/20 1318 1414 1950 Betzaida Ibanez /nt
== END ==
LOC: PAIN 07:01
PROVIDERS: ATTEND Clinical Nurse Specialist Adult Health
DX: M54.16 Radiculopathy, lumbar region (principal); G89.29 Other chronic pain; M19.90 Unspecified osteoarthritis, unspecified site; M25.511 Pain in right shoulder; M79.18 Myalgia, other site; F11.20 Opioid dependence, uncomplicated; Z88.0 Allergy status to penicillin; Z79.899 Other long term (current) drug therapy

== ENCOUNTER → 2020-08-31 | Outpatient (CLI) | payer BC ==
[~2020-08-31] VITALS: Ht 165.1 cm; Wt 88.9 kg
[2020-08-31 09:06] VITALS: BP 149/60
--- NOTE | 2020-08-31 09:18 | NUR ---
Pain Clinic Assessment: 1. History of Osteoarthritis: HIPS History of Rheumatoid Arthritis: DENIES 2. Height: 5 ft. 5 in. 165.1 cm. Weight: 196.0 lb. oz. 88.905 kg. Patient's BMI: 32.6 3. Vital Signs: BP: 149/60 Pulse: 66 Resp: 16 Temp: 02 Sat: 98 ECG Mon: 4. Pain Intensity: 5-6 5. Fall Risk: Dizziness: N Needs help standing or walking: N Fallen in the last 3 months: N Fall risk comments: 6. Patient on Blood Thinner: None 7. History of Hypertension: Y 8. Opioid Therapy greater than 6 weeks: Y Opiate Contract Signed: 10/30/18 9. Risk Assessment Tool Provided: 0-low 10. Functional Assessment Tool: 11. Recreational Drug Use: Never Drug Type: Tobacco Use: Never Smoker Tobacco Type: Amount or Packs/day: How Many Years: Alcohol Use: No Frequency: Quant:
--- NOTE | 2020-09-01 07:56 | HPC ---
[facility] [place] [place] [address] PAIN MANAGEMENT CONSULTATION Name: LEONEL THOMSON [facility] [id number] Admission: 08/31/20 Attend Phys: Betzaida Ibanez Discharge: Date of : 53 Report #: [id number] THIS REPORT FOR: cc: Jesse Joaquin MD, Anil V. MD Hocker,Betzaida RODRIGUEZ ~ DATE OF SERVICE: 08/31/2020 CHIEF COMPLAINT: Chronic low back pain and right shoulder pain. HISTORY OF PRESENT ILLNESS: This is a pleasant 64-year-old female who returns to the pain clinic today for renewal of her opioid medications. Today, she is reporting her pain score at 5-6. Overall, she feels that her back is doing quite well. Her right shoulder has been problematic and she is trying to schedule surgery prior to the end of the year for rotator cuff repair. The patient reports a constant, aching, sharp pain in her mid to low back as well as her right shoulder. It is worse with movement and lying down. She feels as long as she is active and repositions herself and takes her medicines accordingly her pain is well managed. She denies any problems with constipation or daytime somnolence. The patient does report she tested positive for COVID in late June. She reports that she was very tired, laid in bed for several days. She had general body aches and did lose her sense of smell. Since that time, she has had a negative test and is back to work. ALLERGIES: PENICILLIN. CURRENT LIST OF MEDICATIONS: Hydrocodone 10/325 p.r.n., albuterol, Flexeril, Zyrtec, Symbicort, Crestor, Lexapro, furosemide, and amlodipine. PQRS: 1. She has a history of osteoarthritis in her hips and shoulders. Denies any rheumatoid arthritis. 2. Height is 5 feet 5 inches, weight is 196, BMI is 32. 3. Vital signs; blood pressure 149/60, pulse is 66, respirations 16, oxygen sat is 98. 4. Pain score is 5-6. 5. Denies dizziness, does not need help walking or standing, has not fallen in the last 3 months. 6. The patient is not on any blood thinners, but does take medicine for hypertension. 7. Opioid therapy is greater than 6 weeks; therefore, an opioid signed contract is on the chart. Risk assessment is low. Functional assessment is . 8. Recreational drug use, she denies. She is not a smoker and does not drink alcohol. [address] [address] PAIN MANAGEMENT CONSULTATION Name: LEONEL THOMSON Room #: REG [facility] Anthony#: [id number] Admission: 08/31/20 Attend Phys: Betzaida Ibanez Discharge: Date of : 53 Report #: [id number] According to the prescription monitoring system, she is filling appropriately for her medications, filling them in a timely fashion. She is due to fill this week. Her morphine milliequivalent is 40 MME. There is a recent drug screen on the chart that is appropriate. She does safeguard her meds at all times. PHYSICAL EXAMINATION: GENERAL: This is alert and orientated 64-year-old female who is a good historian, rating her pain score at 5-6 today. Her speech is fluent. HEENT: Normocephalic, atraumatic. Extraocular eye muscles are intact. She is wearing a mask. MUSCULOSKELETAL: She has tenderness in her right shoulder that pain is increased with abduction. She has tenderness in her thoracic region at her bra line that does radiate into her lumbosacral region and into her legs bilaterally following the L5-S1 dermatomal distribution. Her upper and lower extremity strength is symmetrical at 5/5. IMPRESSION: 1. Chronic lumbar radiculopathy. 2. Osteoarthritis. 3. Scoliosis. 4. Thoracic myofascial pain. 5. Right shoulder pain. 6. Management of high risk medications under written opioid agreement. We reviewed the fact that opiate medications are being used to provide analgesia adequate to support activities of daily living, not attempting to achieve a specific pain score on the 0-10 Visual Analog Scale. The current opiate medications are providing sufficient analgesia to allow the patient to participate in activities of daily living. The patient is not exhibiting any aberrant behavior suggestive of drug diversion. The patient is not having any adverse reactions to medications. The patient is not suffering from daytime somnolence or mental acuity changes. The patient is managing opiate-induced constipation with appropriate wbgj-uqv-fgsnbze agents and dietary considerations. The patient was counseled on concern for caution with operating a motor vehicle while using opiate medications. PLAN: 1. We discussed treatment options with the patient today. The patient will be advised of her surgery date by Saturday. We did discuss tapering her hydrocodone medications prior to her surgery. So therefore, she will hopefully have better pain control postoperatively. We also discussed that she will more than likely have an interscalene block that will wear off after about 24 hours and to try to stay ahead of her pain instead of playing catch-up. Initially postoperatively, she may require 6 tablets of hydrocodone a day and then to taper though if her orthopedic Dr. Hathaway does provide her with a short prescription, she is to notify [address] [address] PAIN MANAGEMENT CONSULTATION Name: LEONEL THOMSON Room #: REG MICHAEL Cruz#: [id number] Admission: 08/31/20 Attend Phys: Betzaida Ibanez Discharge: Date of : 53 Report #: [id number] our office. The patient verbalizes understanding of this regimen. 2. The patient reports that she did see Dr. Adan's office since our last visit. They encouraged her to take care of her shoulder prior to having a trial for a spinal cord stimulator with Dr. Faria. The patient states that she will restart that process after the first of the year. 3. Scripts will be sent electronically by Dr. Garza today for hydrocodone , #120 for today, 4 and 8-week supply. He did collaborate care today. <ELECTRONICALLY SIGNED> By: Betzaida Ibanez 09/01/20 0756 0945 1113 Betzaida Ibanez /le
== END ==
LOC: PAIN 07-21 06:59
PROVIDERS: ATTEND Clinical Nurse Specialist Adult Health
DX: M54.16 Radiculopathy, lumbar region (principal); M19.90 Unspecified osteoarthritis, unspecified site; M41.80 Other forms of scoliosis, site unspecified; M79.18 Myalgia, other site; Z79.891 Long term (current) use of opiate analgesic

== ENCOUNTER → 2020-10-13 | Outpatient (CLI) | payer BC ==
[~2020-10-13] VITALS: Ht 165.1 cm; Wt 87.9 kg
[2020-10-13 13:36] VITALS: BP 148/81
--- NOTE | 2020-10-13 13:49 | NUR ---
Pain Clinic Assessment: 1. History of Osteoarthritis: HIPS History of Rheumatoid Arthritis: DENIES 2. Height: 5 ft. 5 in. 165.1 cm. Weight: 193.8 lb. oz. 87.907 kg. Patient's BMI: 32.2 3. Vital Signs: BP: 148/81 Pulse: 68 Resp: 20 Temp: 02 Sat: 96 ECG Mon: 4. Pain Intensity: 7 5. Fall Risk: Dizziness: N Needs help standing or walking: N Fallen in the last 3 months: N Fall risk comments: 6. Patient on Blood Thinner: None 7. History of Hypertension: Y 8. Opioid Therapy greater than 6 weeks: Y Opiate Contract Signed: 10/30/18 9. Risk Assessment Tool Provided: 0-low 10. Functional Assessment Tool: 11. Recreational Drug Use: Never Drug Type: Tobacco Use: Never Smoker Tobacco Type: Amount or Packs/day: How Many Years: Alcohol Use: No Frequency: Quant:
== END ==
LOC: PAIN 06:50
PROVIDERS: ATTEND Anesthesiology Pain Medicine
DX: M47.816 Spondylosis without myelopathy or radiculopathy, lumbar region (principal); M19.90 Unspecified osteoarthritis, unspecified site; M79.10 Myalgia, unspecified site; M25.511 Pain in right shoulder; Z79.891 Long term (current) use of opiate analgesic

== ENCOUNTER → 2020-11-17 | Outpatient (CLI) | payer BC ==
[~2020-11-17] VITALS: Ht 160 cm; Wt 89.8 kg
[2020-11-17 08:57] VITALS: BP 168/83
--- NOTE | 2020-11-17 09:03 | NUR ---
Pain Clinic Assessment: 1. History of Osteoarthritis: HIPS SPINE History of Rheumatoid Arthritis: DENIES 2. Height: 5 ft. 3 in. 160.0 cm. Weight: 198.0 lb. oz. 89.812 kg. Patient's BMI: 35.1 3. Vital Signs: BP: 168/83 Pulse: 66 Resp: 18 Temp: 02 Sat: 97 ECG Mon: 4. Pain Intensity: 5-WITH MEDICINE 5. Fall Risk: Dizziness: N Needs help standing or walking: N Fallen in the last 3 months: N Fall risk comments: 6. Patient on Blood Thinner: None 7. History of Hypertension: Y 8. Opioid Therapy greater than 6 weeks: Y Opiate Contract Signed: 10/30/18 9. Risk Assessment Tool Provided: 0-low 10. Functional Assessment Tool: 11. Recreational Drug Use: Never Drug Type: Tobacco Use: Never Smoker Tobacco Type: Amount or Packs/day: How Many Years: Alcohol Use: No Frequency: Quant:
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
== END ==
LOC: PAIN 07:47
PROVIDERS: ATTEND Clinical Nurse Specialist Adult Health
DX: Z76.0 Encounter for issue of repeat prescription (principal); G89.29 Other chronic pain; M54.9 Dorsalgia, unspecified; M54.16 Radiculopathy, lumbar region; M19.90 Unspecified osteoarthritis, unspecified site; M25.511 Pain in right shoulder; Z79.891 Long term (current) use of opiate analgesic; Z79.899 Other long term (current) drug therapy

== ENCOUNTER → 2021-02-13 | Outpatient (CLI) | payer BC ==
[~2021-02-13] VITALS: Ht 165.1 cm; Wt 88.5 kg
[~2021-02-13] MED LIST changes: +CELEBREX100 MG/1 C PO
[2021-02-13 09:11] VITALS: BP 141/76
--- NOTE | 2021-02-13 09:13 | NUR ---
Pain Clinic Assessment: 1. History of Osteoarthritis: HIPS SPINE History of Rheumatoid Arthritis: DENIES 2. Height: 5 ft. 5 in. 165.1 cm. Weight: 195.0 lb. oz. 88.452 kg. Patient's BMI: 32.4 3. Vital Signs: BP: 141/76 Pulse: 71 Resp: 16 Temp: 02 Sat: 97 ECG Mon: 4. Pain Intensity: 6 5. Fall Risk: Dizziness: N Needs help standing or walking: N Fallen in the last 3 months: N Fall risk comments: 6. Patient on Blood Thinner: None 7. History of Hypertension: Y 8. Opioid Therapy greater than 6 weeks: Y Opiate Contract Signed: 10/30/18 9. Risk Assessment Tool Provided: 0-low 10. Functional Assessment Tool: 11. Recreational Drug Use: Never Drug Type: Tobacco Use: Never Smoker Tobacco Type: Amount or Packs/day: How Many Years: Alcohol Use: No Frequency: Quant:
== END ==
LOC: PAIN 07:13
PROVIDERS: ATTEND Clinical Nurse Specialist Adult Health
DX: M54.16 Radiculopathy, lumbar region (principal); G89.29 Other chronic pain; M19.90 Unspecified osteoarthritis, unspecified site; M79.10 Myalgia, unspecified site; Z79.891 Long term (current) use of opiate analgesic; Z79.899 Other long term (current) drug therapy

== ENCOUNTER → 2021-04-13 | Outpatient (CLI) | payer BC ==
[~2021-04-13] VITALS: Ht 165.1 cm; Wt 90.5 kg
[~2021-04-13] MED LIST changes: +CELEBREX 200 M200 M1 PO
[2021-04-13 09:02] VITALS: BP 158/66
--- NOTE | 2021-04-13 09:07 | NUR ---
Pain Clinic Assessment: 1. History of Osteoarthritis: HIPS SPINE History of Rheumatoid Arthritis: DENIES 2. Height: 5 ft. 5 in. 165.1 cm. Weight: 199.6 lb. oz. 90.538 kg. Patient's BMI: 33.2 3. Vital Signs: BP: 158/66 Pulse: 72 Resp: 16 Temp: 02 Sat: 99 ECG Mon: 4. Pain Intensity: 6 5. Fall Risk: Dizziness: N Needs help standing or walking: N Fallen in the last 3 months: N Fall risk comments: 6. Patient on Blood Thinner: None 7. History of Hypertension: Y 8. Opioid Therapy greater than 6 weeks: Y Opiate Contract Signed: 10/30/18 9. Risk Assessment Tool Provided: 0-low 10. Functional Assessment Tool: 11. Recreational Drug Use: Never Drug Type: Tobacco Use: Never Smoker Tobacco Type: Amount or Packs/day: How Many Years: Alcohol Use: No Frequency: Quant:
== END ==
LOC: PAIN 06:55
PROVIDERS: ATTEND Clinical Nurse Specialist Adult Health
DX: G89.29 Other chronic pain (principal); M54.16 Radiculopathy, lumbar region; M19.90 Unspecified osteoarthritis, unspecified site; M25.511 Pain in right shoulder; M41.9 Scoliosis, unspecified; Z88.0 Allergy status to penicillin; Z79.891 Long term (current) use of opiate analgesic; Z79.899 Other long term (current) drug therapy; Z79.2 Long term (current) use of antibiotics

== ENCOUNTER → 2021-07-06 | Outpatient (CLI) | payer BC ==
[~2021-07-06] VITALS: Ht 165.1 cm; Wt 92.5 kg
[2021-07-06 12:33] VITALS: BP 143/70
--- NOTE | 2021-07-06 12:34 | NUR ---
Pain Clinic Assessment: 1. History of Osteoarthritis: HIPS SPINE KNEES History of Rheumatoid Arthritis: DENIES 2. Height: 5 ft. 5 in. 165.1 cm. Weight: 204.0 lb. oz. 92.534 kg. Patient's BMI: 33.9 3. Vital Signs: BP: 143/70 Pulse: 68 Resp: 16 Temp: 02 Sat: 96 ECG Mon: 4. Pain Intensity: 6 5. Fall Risk: Dizziness: N Needs help standing or walking: N Fallen in the last 3 months: N Fall risk comments: 6. Patient on Blood Thinner: None 7. History of Hypertension: Y 8. Opioid Therapy greater than 6 weeks: Y Opiate Contract Signed: 10/30/18 9. Risk Assessment Tool Provided: 0-low 10. Functional Assessment Tool: 11. Recreational Drug Use: Never Drug Type: Tobacco Use: Never Smoker Tobacco Type: Amount or Packs/day: How Many Years: Alcohol Use: No Frequency: Quant:
== END ==
LOC: PAIN 10:56
PROVIDERS: ATTEND Clinical Nurse Specialist Adult Health
DX: G89.29 Other chronic pain (principal); M54.16 Radiculopathy, lumbar region; M54.59 Other low back pain; M19.90 Unspecified osteoarthritis, unspecified site; M41.9 Scoliosis, unspecified; Z79.899 Other long term (current) drug therapy; Z88.0 Allergy status to penicillin

== ENCOUNTER → 2021-09-28 | Outpatient (CLI) | payer BC ==
[~2021-09-28] VITALS: Ht 165.1 cm; Wt 93.3 kg
[2021-09-28 09:08] VITALS: BP 132/69
--- NOTE | 2021-09-28 10:00 | NUR ---
Pain Clinic Assessment: 1. History of Osteoarthritis: HIPS SPINE KNEES History of Rheumatoid Arthritis: DENIES 2. Height: 5 ft. 5 in. 165.1 cm. Weight: 205.6 lb. oz. 93.260 kg. Patient's BMI: 34.2 3. Vital Signs: BP: 132/69 Pulse: 70 Resp: 20 Temp: 02 Sat: 100 ECG Mon: 4. Pain Intensity: 6 5. Fall Risk: Dizziness: N Needs help standing or walking: N Fallen in the last 3 months: N Fall risk comments: 6. Patient on Blood Thinner: None 7. History of Hypertension: Y 8. Opioid Therapy greater than 6 weeks: Y Opiate Contract Signed: 10/30/18 9. Risk Assessment Tool Provided: 0-low 10. Functional Assessment Tool: 11. Recreational Drug Use: Never Drug Type: Tobacco Use: Never Smoker Tobacco Type: Amount or Packs/day: How Many Years: Alcohol Use: No Frequency: Quant:
== END ==
LOC: PAIN 08:05
PROVIDERS: ATTEND Clinical Nurse Specialist Adult Health
DX: M54.16 Radiculopathy, lumbar region (principal); M19.90 Unspecified osteoarthritis, unspecified site; M41.80 Other forms of scoliosis, site unspecified; M25.511 Pain in right shoulder; Z88.0 Allergy status to penicillin; Z79.899 Other long term (current) drug therapy